=== PATIENT | female | born 1995 | race Caucasian/White ===

== ENCOUNTER 2016-10-25 21:27 | Emergency (ER) | payer OTHER ==
[~2016-10-25] VITALS: Ht 157.5 cm; Wt 45.5 kg
[2016-10-25 21:40] VITALS: TEMP 98.7
[2016-10-25] MEDS ORDERED: ZOLOFT 100MG100 MG PO (21:44)
[2016-10-25] MEDS ORDERED: BIRTH CONTROL (21:45)
[2016-10-25 23:47] LABS: HEMOGLOBIN 14.4 g/dl (12.5-16.0); MEAN CELL VOLUME 90 fl (80.0-100.0); MEAN CORPUSCULAR HEMOGLOBIN 31 pg (27.0-31.0); MEAN CORPUSCULAR HGB CONC 34 g/dl (33.0-37.0); MEAN PLATELET VOLUME 9.9 fl (7.4-10.4); PLATELET COUNT 282 K/mm3 (130-400); RED BLOOD COUNT 4.65 M/mm3 (4.10-5.30); REDCELL DISTRIBUTION WIDTH-CV 12.5 % (11.5-14.5); WHITE BLOOD COUNT 12.9 K/mm3 (4.8-10.8)
[2016-10-25 23:53] LABS: ADD PATHOLOGY DIFF REVIEW NO
[2016-10-26] LABS: ALBUMIN 4.8 gm/dL (3.5-5.0); BAND 16 % (0-10); C-REACTIVE PROTEIN 2.3 mg/dL (0.0-0.9); CALCIUM 9.6 mg/dL (8.4-10.2); CREATININE, serum 0.55 mg/dL (0.52-1.25); NEUTROPHILS 75 % (42.0-75.2); PLATELET ESTIMATE NORMAL (NORMAL); POTASSIUM 3.8 mmol/L (3.4-5.0); TOTAL CELLS COUNTED 100; TOTAL PROTEIN 8.2 gm/dL (6.4-8.2)
[2016-10-26] MEDS ORDERED: ZOFRAN ODT4 MG PO (00:28)
[2016-10-26 01:27] VITALS: BP 110/78; PULSE 110
== END 2016-10-26 01:29 | disposition home or self-care (01) ==
LOC: COL.ER 21:27
PROVIDERS: Physician Assistant
DX: R11.10 Vomiting, unspecified (principal); R19.7 Diarrhea, unspecified
CPT/HCPCS: J2405; J2550; J7030

== ENCOUNTER 2018-02-26 21:26 | Emergency (ER) | payer OTHER ==
[~2018-02-26] VITALS: Ht 157.5 cm; Wt 50.0 kg
[~2018-02-26 21:26] MED LIST: BIRTH CONTROL; ZOFRAN ODT4 MG PO; ZOLOFT 100MG100 MG PO
[2018-02-26 21:32] VITALS: TEMP 97.6
[2018-02-26 22:53] LABS: COLLECTION METHOD CLEAN CATCH
[2018-02-26 23:00] LABS: MUCOUS Present /lpf; PH 6 (5-8); URINE APPEARANCE Clear; URINE BACTERIA None Seen /hpf; URINE BILIRUBIN Negative (NEGATIVE); URINE BLOOD Negative (NEGATIVE); URINE COLOR Yellow; URINE GLUCOSE Negative (NEGATIVE); URINE KETONE 1+ (NEGATIVE); URINE LEUKOCYTE ESTERASE Negative (NEGATIVE); URINE NITRATE Negative (NEGATIVE); URINE PROTEIN(semi-quant) Negative (NEGATIVE); URINE RBC 0-2 /hpf
[2018-02-26 23:06] LABS: BASO % 0.2 % (0.0-2.0); EOS # 0.1 (0.0-0.7); EOS % 1.2 % (0-4.0); GRAN # 5.9 (1.4-6.5); GRAN % 61.2 % (42.2-75.2); HEMATOCRIT 38.5 % (37.0-47.0); HEMOGLOBIN 12.7 g/dl (12.5-16.0); LYMPH % 30.9 % (20.0-51.0); MEAN CELL VOLUME 91 fl (80.0-100.0); MEAN CORPUSCULAR HEMOGLOBIN 30 pg (27.0-31.0); MEAN CORPUSCULAR HGB CONC 33 g/dl (33.0-37.0); MEAN PLATELET VOLUME 9.2 fl (7.4-10.4); MONO # 0.6 (0.1-0.6); MONO % 6.2 % (1.7-9.3); PLATELET COUNT 336 K/mm3 (130-400); RED BLOOD COUNT 4.24 M/mm3 (4.10-5.30); REDCELL DISTRIBUTION WIDTH-CV 12.6 % (11.5-14.5)
[2018-02-26 23:10] LABS: ALBUMIN 4.3 gm/dL (3.5-5.0); BILIRUBIN,TOTAL 0.5 mg/dL (0.0-1.0); C-REACTIVE PROTEIN 0.8 mg/dL (0.0-0.9); CALCIUM 8.9 mg/dL (8.4-10.2); CREATININE, serum 0.57 mg/dL (0.52-1.25); POTASSIUM 3.4 mmol/L (3.4-5.0); TOTAL PROTEIN 7.6 gm/dL (6.4-8.2)
[2018-02-26] MEDS ORDERED: ZOFRAN 4MG T4 MG/TAB PO (23:12)
[2018-02-26] MEDS ORDERED: CARAFATE 1GM1 G PO (23:12)
[2018-02-26 23:46] VITALS: BP 105/60; PULSE 85
== END 2018-02-26 23:48 | disposition home or self-care (01) ==
LOC: COL.ER 21:26
PROVIDERS: Emergency Medicine
DX: K29.70 Gastritis, unspecified, without bleeding (principal); R11.2 Nausea with vomiting, unspecified; R51 Headache; J45.909 Unspecified asthma, uncomplicated; K21.9 Gastro-esophageal reflux disease without esophagitis
CPT/HCPCS: J1885; J2405; J7030

== ENCOUNTER → 2018-04-12 | Outpatient (CLI) | payer OTHER ==
[~2018-04-12] MED LIST changes: +CARAFATE 1GM1 G PO; +ZOFRAN 4MG T4 MG/TAB PO
== END ==
LOC: COL.RAD 08:51
DX: R10.13 Epigastric pain (principal); Z98.890 Other specified postprocedural states

== ENCOUNTER 2018-05-31 21:56 | Emergency (ER) | payer OTHER ==
[~2018-05-31] VITALS: Ht 157.5 cm; Wt 49.5 kg
[2018-05-31 22:03] VITALS: BP 102/50; TEMP 98.2
[2018-05-31 22:37] LABS: COLLECTION METHOD CLEAN CATCH
[2018-05-31 22:40] LABS: BASO % 0.4 % (0.0-2.0); EOS # 0.2 (0.0-0.7); EOS % 2.6 % (0-4.0); GRAN # 2.8 (1.4-6.5); HEMATOCRIT 37.6 % (37.0-47.0); HEMOGLOBIN 12.4 g/dl (12.5-16.0); LYMPH # 4.4 (1.2-3.4); MEAN CELL VOLUME 92 fl (80.0-100.0); MEAN CORPUSCULAR HEMOGLOBIN 30 pg (27.0-31.0); MEAN CORPUSCULAR HGB CONC 33 g/dl (33.0-37.0); MEAN PLATELET VOLUME 9.4 fl (7.4-10.4); MONO # 0.7 (0.1-0.6); MONO % 8.8 % (1.7-9.3); PLATELET COUNT 318 K/mm3 (130-400); RED BLOOD COUNT 4.11 M/mm3 (4.10-5.30); REDCELL DISTRIBUTION WIDTH-CV 12.2 % (11.5-14.5)
[2018-05-31 22:46] LABS: AMORPHOUS CRYSTAL Present /uL; MUCOUS Present /lpf; PH 7 (5-8); URINE APPEARANCE Cloudy; URINE BACTERIA None Seen /hpf; URINE BILIRUBIN Negative (NEGATIVE); URINE BLOOD Negative (NEGATIVE); URINE COLOR Yellow; URINE GLUCOSE Negative (NEGATIVE); URINE KETONE Negative (NEGATIVE); URINE LEUKOCYTE ESTERASE Negative (NEGATIVE); URINE NITRATE Negative (NEGATIVE); URINE PROTEIN(semi-quant) Negative (NEGATIVE); URINE RBC 0-2 /hpf
[2018-05-31 22:53] LABS: ALANINE AMINOTRANSFERASE 36 U/L (9-52); ALBUMIN 4.4 gm/dL (3.5-5.0); ALKALINE PHOSPHATASE 75 U/L (50-136); ANION GAP 6 mmol/L (7-16); AST,SGOT 24 U/L (15-37); BILIRUBIN,TOTAL 0.3 mg/dL (0.0-1.0); BLOOD UREA NITROGEN 11 mg/dL (7-17); CALCIUM 9.2 mg/dL (8.4-10.2); CARBON DIOXIDE 29 mmol/L (22-30); CHLORIDE 105 mmol/L (98-107); CREATININE, serum 0.64 mg/dL (0.52-1.25); GLUCOSE 78 mg/dL (74-106); LIPASE 119 U/L (23-300); POTASSIUM 4.1 mmol/L (3.4-5.0); SODIUM 139 mmol/L (137-145); TOTAL PROTEIN 7.7 gm/dL (6.4-8.2)
[2018-05-31 22:54] LABS: C-REACTIVE PROTEIN < 0.5 mg/dL (0.0-0.9)
[2018-05-31 23:52] VITALS: PULSE 70
== END 2018-05-31 23:52 | disposition home or self-care (01) ==
LOC: COL.ER 21:56
PROVIDERS: Emergency Medicine
DX: R10.13 Epigastric pain (principal); F32.9 Major depressive disorder, single episode, unspecified; Z87.11 Personal history of peptic ulcer disease
CPT/HCPCS: J2405; J2550; J3010; J7030